=== PATIENT | female | born 1990 | race Asian ===

== ENCOUNTER 2018-04-29 02:33 | Emergency (ER) | payer OTHER ==
[~2018-04-29] VITALS: Ht 152.4 cm; Wt 45.0 kg
[2018-04-29] MEDS ORDERED: PHEN-933 PO (02:43)
[2018-04-29 03:19] LABS: APPEARANCE,URINE CLOUDY (CLEAR); BILIRUBIN,URINE NEGATIVE (NEGATIVE); GLUCOSE, URINE (UA) NEGATIVE (NEGATIVE); KETONES,URINE NEGATIVE (NEGATIVE); LEUKOCYTE ESTERASE ,URINE MODERATE (NEGATIVE); NITRATE,URINE POSITIVE (NEGATIVE); OCCULT BLOOD,URINE SMALL (NEGATIVE); PH,URINE 6.5 (5.0-8.0); PROTEIN,URINE NEGATIVE (NEGATIVE)
[2018-04-29 03:34] LABS: BACTERIA,URINE Few /HPF (None Seen); SQUAMOUS EPITHELIAL CELL,UR Few /LPF (None Seen)
[2018-04-29] MEDS ORDERED: CefTRIAXone SODIUM 1 GM/VIAL IM ONE (04:00)
[2018-04-29] MEDS ORDERED: LIDOCAINE HCL/PF 1% 2 ML VIAL IM ONE (04:00)
[2018-04-29 04:30] VITALS: BP 119/80
== END 2018-04-29 04:48 | disposition home or self-care (01) ==
LOC: EMS 02:33
DX: N39.0 Urinary tract infection, site not specified (principal)
CPT/HCPCS: 81001; 87086; 99284; J0696; J3490

== ENCOUNTER 2019-04-07 23:05 | Observation (INO) | payer OTHER ==
[~2019-04-07] VITALS: Ht 152.4 cm; Wt 51.3 kg
[~2019-04-07 23:05] MED LIST: PHEN-846 PO
[2019-04-08 00:18] VITALS: BP 112/64
[2019-04-08] MEDS ORDERED: PREN-217 PO (00:50)
== END 2019-04-08 00:40 | disposition home or self-care (01) ==
LOC: 4S 23:05
PROVIDERS: ADMIT Obstetrics & Gynecology; ATTEND Obstetrics & Gynecology
DX: O26.892 Other specified pregnancy related conditions, second trimester (principal); R21 Rash and other nonspecific skin eruption; Z3A.21 21 weeks gestation of pregnancy
CPT/HCPCS: 81002; G0378